=== PATIENT | female | born 1960 | race Caucasian/White ===

== ENCOUNTER 2018-09-08 15:43 | Emergency (ER) | payer OTHER ==
[2018-09-08 15:48] VITALS: RESP 18
[2018-09-08] MEDS ORDERED: HYDROmorphone 1 MG/ML 1 ML SYRINGE IVP STA ×2 (16:19→17:53)
[2018-09-08] MEDS ORDERED: ONDANSETRON 4 MG/2 ML VIAL IVP STA ×2 (16:19→17:53)
[2018-09-08] MEDS ORDERED: SODIUM CHLORIDE 0.9% 1,000 ML IV STA (16:19)
[2018-09-08 17:03] LABS: Basophils % (A) 0 %; Eosinophils % (A) 1 %; HGB 13.3 gm/dL (11.4-16.0); Lymphocytes # (A) 1.3 k/uL (1.0-4.8); Lymphocytes % (A) 16 %; MCH 32.8 pg (25.0-35.0); MCHC 32.5 g/dL (31.0-37.0); MCV 100.8 fL (80.0-100.0); Mean Platelet Volume 6.3; Monocytes # (A) 0.1 k/uL (0-1.0); Monocytes % (A) 1 %; Neutrophils # (A) 6.8 k/uL (1.3-7.7); Neutrophils % (A) 82 %; Platelet Count 415 k/uL (150-450); RBC 4.07 m/uL (3.80-5.40); RDW 11.9 % (11.5-15.5); WBC 8.3 k/uL (3.8-10.6)
[2018-09-08 17:08] LABS: Appearance,Urine Clear (Clear); Bilirubin,Urine Negative (Negative); Blood,Urine Negative (Negative); Color,Urine Yellow; Glucose,Urine (UA) Negative (Negative); Ketones,Urine Negative (Negative); Leukocyte Esterase,Urine Negative (Negative); Nitrite,Urine Negative (Negative); PH, Urine 5.5 (5.0-8.0); Protein,Urine Trace (Negative); Specific Gravity,Urine 1.026 (1.001-1.035); Urobilinogen,Urine <2.0 mg/dL (<2.0)
[2018-09-08 17:13] LABS: Albumin 4.2 g/dL (3.5-5.0); Calcium 10.1 mg/dL (8.4-10.2); Potassium 3.9 mmol/L (3.5-5.1); Total Bilirubin 0.6 mg/dL (0.2-1.3); Total Protein 7.9 g/dL (6.3-8.2)
--- NOTE | 2018-09-08 17:53 | ED ---
General Adult HPI - General Chief complaint: Abdominal Pain Stated complaint: Abd pain Time Seen by Provider: 09/08/18 16:01 Source: patient, RN notes reviewed, old records reviewed Mode of arrival: wheelchair Limitations: no limitations - History of Present Illness Initial comments: Patient is a 57-year-old female's with significant past medical history for pericarditis, presented to the emergency room today with a chief complaint of increased abdominal pain. She states it feels like pancreatitis that she's had in the past. She does admit that she was at [facility] a few weeks ago admitted and then released after a few days. She states that she has not followed up with GI. Patient does admit the pain seemed to increase the last 2 days. She states she's had increased nausea vomiting over the last day. No signs of blood. Does admit to diarrhea as well. Patient denies any other complaints or symptoms. She states that the symptoms are consistent with finger times that she's had before. She states pain is located in the upper abdomen and radiates to the sides. Patient denies any recent fever, chills, shortness of breath, chest pain, back pain, numbness or tingling, headaches or visual changes, or any other complaints. - Related Data Home Medications Medication Instructions Recorded Confirmed Albuterol Inhaler [Ventolin Hfa 4 puff INHALATION RT-DAILY PRN 07/27/14 09/08/18 Inhaler] Escitalopram [Lexapro] 20 mg PO DAILY 07/27/14 09/08/18 Montelukast [Singulair] 10 mg PO HS 07/27/14 09/08/18 Ibuprofen [Motrin] 800 mg PO Q6HR PRN 09/09/16 09/08/18 ALPRAZolam [Xanax] 1 mg PO TID 09/08/18 09/08/18 Albuterol Nebulized [Ventolin 2.5 mg INHALATION DAILY PRN 09/08/18 09/08/18 Nebulized] Cyclobenzaprine [Flexeril] 5 mg PO BID 09/08/18 09/08/18 Folic Acid 1 mg PO DAILY 09/08/18 09/08/18 HYDROcodone/APAP 10-325MG [[place] 1 tab PO TID 09/08/18 09/08/18 10-325] Levothyroxine Sodium 125 mcg PO DAILY 09/08/18 09/08/18 Lipase/Protease/Amylase [[place] 36,000 - 108,000 units PO DAILY 09/08/1809/08 36,000 Units Capsule] Omeprazole 20 mg PO BID 09/08/18 09/08/18 Thiamine [Vitamin B-1] 100 mg PO DAILY 09/08/18 09/08/18 Previous Rx's Medication Instructions Recorded Ondansetron Odt [Zofran ODT] 4 mg PO Q8HR PRN #20 tab 09/08/18 Allergies Allergy/AdvReac Type Severity Reaction Status Date / Time adhesive tape Allergy Rash/Hives Verified 09/08/18 16:18 chocolate flavor AdvReac Nausea & Verified 09/08/18 16:18 Vomiting morphine AdvReac Vomiting Verified 09/08/18 16:18 tomato AdvReac Nausea & Verified 09/08/18 16:18 Vomiting Review of Systems ROS Statement: Those systems with pertinent positive or pertinent negative responses have been documented in the HPI. ROS Other: All systems not noted in ROS Statement are negative. Past Medical History Past Medical History: Asthma, COPD, GERD/Reflux, Pneumonia, Skin Disorder, Thyroid Disorder Additional Past Medical History / Comment(s): Chronic pancreatitis, back pain- BULGING DISCS, scoliosis, COLITIS, UTI'S, ANEMIA, several stomach ULCERs, MIGRAINES, TMJ, bilateral TINNITIS, "spider" veins on bilateral legs, CYST ON LIVER-stable, hemorhoids, fx tailbone, eczema. History of Any Multi-Drug Resistant Organisms: None Reported Past Surgical History: Appendectomy, Tonsillectomy Additional Past Surgical History / Comment(s): sinus SX FOR DEVIATED SEPTUM, laproscopy for ovarian cysts, novasure UTERINE ABLATION, CYSTOSCOPY, TOOTH EXTRACTIONS, EGD W/STOMACH BX,COLONOSCOPIES, stents in pancreas Past Anesthesia/Blood Transfusion Reactions: Previous Problems w/ Anesthesia Additional Past Anesthesia/Blood Transfusion Reaction / Comment(s): trouble breathing coming out of anesthesia Past Psychological History: Anxiety Smoking Status: Current every day smoker Past Alcohol Use History: Occasional Past Drug Use History: None Reported - Past Family History Mother Family Medical History: Myocardial Infarction (ME) Additional Family Medical History / Comment(s): Mother of a ME at age 44yrs. Father History Unknown: Yes General Exam - General Exam Comments Initial Comments: General: The patient is awake and alert, in no distress, and does not appear acutely ill. Eye: There is normal conjunctiva bilaterally. No signs of icterus. Ears, nose, mouth and throat: There are moist mucous membranes and no oral lesions. Neck: The neck is supple, there is no tenderness or JVD. Cardiovascular: There is a regular rate and rhythm. No murmur, rub or gallop is appreciated. Respiratory: Lungs are clear to auscultation, respirations are non-labored, breath sounds are equal. No wheezes, stridor, rales, or rhonchi. Gastrointestinal: Abdomen soft on palpation. Patient does have tenderness epigastric and both left and right upper quadrants. No rebound, guarding or CVA tenderness. Musculoskeletal: Normal ROM, no tenderness. Strength 5/5. Sensation intact. Radial Pulses equal bilaterally 2+. Neurological: A&O x 3. CN II-XII intact, There are no obvious motor or sensory deficits. Coordination appears grossly intact. Speech is normal. Skin: Skin is warm and dry and no rashes or lesions are noted. Psychiatric: Cooperative, appropriate mood & affect, normal judgment. Limitations: no limitations Course Vital Signs 09/08/18 09/08/18 15:44 16:53 Temperature 97.5 F L Pulse Rate 102 H 87 Respiratory 18 18 Rate Blood Pressure 110/75 O2 Sat by Pulse 100 98 Oximetry Medical Decision Making - Medical Decision Making Patient's labs been reviewed does show lipase mildly elevated at 468. Patient is doing well at this time has had no nausea vomiting here. Abdomen is soft on palpation. Patient states that the symptoms are consistent with pink at times that she's had in the past. She states that she feels comfortable being discharged home. Will be given nausea medication. Advised to follow-up with GI. Advised to return if symptoms increase or worsen. She states understanding and is in agreement. - Lab Data Result diagrams: 09/08/18 16:40 09/08/18 16:40 Lab Results 09/08/18 09/08/18 09/08/18 Range/Units 16:40 16:40 16:40 WBC 8.3 (3.8-10.6) k/uL RBC 4.07 (3.80-5.40) m/uL Hgb 13.3 (11.4-16.0) gm/dL Hct 41.0 (34.0-46.0) % MCV 100.8 H (80.0-100.0) fL MCH 32.8 (25.0-35.0) pg MCHC 32.5 (31.0-37.0) g/dL RDW 11.9 (11.5-15.5) % Plt Count 415 (150-450) k/uL Neutrophils % 82 % Lymphocytes % 16 % Monocytes % 1 % Eosinophils % 1 % Basophils % 0 % Neutrophils # 6.8 (1.3-7.7) k/uL Lymphocytes # 1.3 (1.0-4.8) k/uL Monocytes # 0.1 (0-1.0) k/uL Eosinophils # 0.0 (0-0.7) k/uL Basophils # 0.0 (0-0.2) k/uL Sodium 136 L (137-145) mmol/L Potassium 3.9 (3.5-5.1) mmol/L Chloride 101 (98-107) mmol/L Carbon Dioxide 23 (22-30) mmol/L Anion Gap 12 mmol/L BUN 16 (7-17) mg/dL Creatinine 1.04 (0.52-1.04) mg/dL Est GFR (CKD-EPI)AfAm 70 (>60 ml/min/1.73 sqM) Est GFR (CKD-EPI)NonAf 61 (>60 ml/min/1.73 sqM) Glucose 123 H (74-99) mg/dL Calcium 10.1 (8.4-10.2) mg/dL Total Bilirubin 0.6 (0.2-1.3) mg/dL AST 24 (14-36) U/L ALT 19 (9-52) U/L Alkaline Phosphatase 123 (38-126) U/L Total Protein 7.9 (6.3-8.2) g/dL Albumin 4.2 (3.5-5.0) g/dL Amylase 112 H (30-110) U/L Lipase 468 H (23-300) U/L Urine Color Yellow Urine Appearance Clear (Clear) Urine pH 5.5 (5.0-8.0) Ur Specific [place] 1.026 (1.001-1.035) Urine Protein Trace H (Negative) Urine Glucose (UA) Negative (Negative) Urine Ketones Negative (Negative) Urine Blood Negative (Negative) Urine Nitrite Negative (Negative) Urine Bilirubin Negative (Negative) Urine Urobilinogen <2.0 (<2.0) mg/dL Ur Leukocyte Esterase Negative (Negative) Disposition Clinical Impression: Pancreatitis Disposition: HOME SELF-CARE Condition: Good Instructions: Pancreatitis (ED) Additional Instructions: Please use medication as discussed. Please follow-up with GI/family doctor in the next 2 days of symptoms have not improved. Please return to emergency room if the symptoms increase or worsen or for any other concerns. Prescriptions: Ondansetron Odt [Zofran ODT] 4 mg PO Q8HR PRN #20 tab PRN Reason: Nausea Is patient prescribed a controlled substance at d/c from ED?: No Referrals: Miquel Randolph MD [Primary Care Provider] - 1-2 days Tea Moore MD [STAFF PHYSICIAN] - 1-2 days Time of Disposition: 17:52
[2018-09-08 18:08] VITALS: BP 114/72; PULSE 93
[2018-09-08 18:15] VITALS: TEMP 98.7
== END 2018-09-08 18:15 | disposition home or self-care (01) ==
LOC: EC 15:43
DX: K85.90 Acute pancreatitis without necrosis or infection, unspecified (principal); R74.8 Abnormal levels of other serum enzymes; J44.9 Chronic obstructive pulmonary disease, unspecified; K21.9 Gastro-esophageal reflux disease without esophagitis; E07.9 Disorder of thyroid, unspecified; D64.9 Anemia, unspecified; F41.9 Anxiety disorder, unspecified; F17.200 Nicotine dependence, unspecified, uncomplicated; Z79.891 Long term (current) use of opiate analgesic; Z79.899 Other long term (current) drug therapy; Z88.5 Allergy status to narcotic agent; Z91.018 Allergy to other foods; Z91.048 Other nonmedicinal substance allergy status; Z90.49 Acquired absence of other specified parts of digestive tract
CPT/HCPCS: 99284 ×2; 96374 ×2; 96375 ×2; 96376 ×3; 96361 ×2; 36415; 80053; 82150; 83690; 85025; 81003; J2405; J1170

== ENCOUNTER 2018-09-13 16:02 | Emergency (ER) | payer OTHER ==
[2018-09-13] MEDS ORDERED: ONDANSETRON 4 MG/2 ML VIAL IVP STA (16:18)
[2018-09-13] MEDS ORDERED: SODIUM CHLORIDE 0.9% 1,000 ML IV STA ×2 (16:18)
[2018-09-13] MEDS ORDERED: HYDROmorphone 1 MG/ML 1 ML SYRINGE IVP STA ×2 (16:19→19:53)
--- NOTE | 2018-09-13 16:39 | ED ---
General Adult HPI - General Chief complaint: Abdominal Pain Stated complaint: pancreatitis Time Seen by Provider: 09/13/18 16:13 Source: patient, RN notes reviewed Mode of arrival: wheelchair Limitations: no limitations - History of Present Illness Initial comments: Patient's a 27-year-old female significant past medical history for pancreatic tenderness, presented to the emergency room today with a chief complaint of increased abdominal pain. Patient does admit that she followed up with her surgeon today was advised coming here to the emergency room. Patient states she 's been having increased pain over the last 2-3 weeks. Patient does admit that she was admitted at [facility] approximately one week ago and then released. She states that she's had increased pain over the last 4 days. Patient does admit to nausea vomiting. Patient denies any recent fever, chills, shortness of breath, chest pain, back pain, numbness or tingling, headaches or visual changes, or any other complaints. - Related Data Home Medications Medication Instructions Recorded Confirmed Albuterol Inhaler [Ventolin Hfa 2 puff INHALATION RT-Q4H PRN 07/27/14 09/13/18 Inhaler] Escitalopram [Lexapro] 20 mg PO DAILY 07/27/14 09/13/18 Montelukast [Singulair] 10 mg PO HS 07/27/14 09/13/18 ALPRAZolam [Xanax] 1 mg PO TID 09/08/18 09/13/18 Folic Acid 1 mg PO DAILY 09/08/18 09/13/18 Lipase/Protease/Amylase [[place] [address] 6 cap PO TID 09/08/18 09/13/18 36,000 Units Capsule] Omeprazole 20 mg PO BID 09/08/18 09/13/18 HYDROcodone/APAP 7.5-325MG [[place] 1 tab PO BID PRN 09/13/18 09/13/18 7.5-325] diphenhydrAMINE [Benadryl] 25 mg PO Q8H PRN 09/13/18 09/13/18 Allergies Allergy/AdvReac Type Severity Reaction Status Date / Time adhesive tape Allergy Rash/Hives Verified 09/13/18 16:52 chocolate flavor AdvReac Nausea & Verified 09/13/18 16:52 Vomiting morphine AdvReac Vomiting Verified 09/13/18 16:52 tomato AdvReac Nausea & Verified 09/13/18 16:52 Vomiting Review of Systems ROS Statement: Those systems with pertinent positive or pertinent negative responses have been documented in the HPI. ROS Other: All systems not noted in ROS Statement are negative. Past Medical History Past Medical History: Asthma, COPD, GERD/Reflux, Pneumonia, Skin Disorder, Thyroid Disorder Additional Past Medical History / Comment(s): Chronic pancreatitis, back pain- BULGING DISCS, scoliosis, COLITIS, UTI'S, ANEMIA, several stomach ULCERs, MIGRAINES, TMJ, bilateral TINNITIS, "spider" veins on bilateral legs, CYST ON LIVER-stable, hemorhoids, fx tailbone, eczema. History of Any Multi-Drug Resistant Organisms: None Reported Past Surgical History: Appendectomy, Tonsillectomy Additional Past Surgical History / Comment(s): sinus SX FOR DEVIATED SEPTUM, laproscopy for ovarian cysts, novasure UTERINE ABLATION, CYSTOSCOPY, TOOTH EXTRACTIONS, EGD W/STOMACH BX,COLONOSCOPIES, stents in pancreas Past Anesthesia/Blood Transfusion Reactions: Previous Problems w/ Anesthesia Additional Past Anesthesia/Blood Transfusion Reaction / Comment(s): trouble breathing coming out of anesthesia Past Psychological History: Anxiety Smoking Status: Current every day smoker Past Alcohol Use History: Occasional Past Drug Use History: None Reported - Past Family History Mother Family Medical History: Myocardial Infarction (NH) Additional Family Medical History / Comment(s): Mother of a NH at age 44yrs. Father History Unknown: Yes General Exam - General Exam Comments Initial Comments: General: The patient is awake and alert, in mild distress Eye: There is normal conjunctiva bilaterally. No signs of icterus. Ears, nose, mouth and throat: There are moist mucous membranes and no oral lesions. Neck: The neck is supple. Cardiovascular: There is a regular rate and rhythm. No murmur, rub or gallop is appreciated. Respiratory: Lungs are clear to auscultation, respirations are non-labored, breath sounds are equal. No wheezes, stridor, rales, or rhonchi. Gastrointestinal: Patient does have tenderness epigastric and both left and right upper quadrants. No rebound. Musculoskeletal: Normal ROM, no tenderness. Strength 5/5. Sensation intact. Pulses equal bilaterally 2+. Neurological: A&O x 3. CN II-XII intact, There are no obvious motor or sensory deficits. Coordination appears grossly intact. Speech is normal. Skin: Skin is warm and dry and no rashes or lesions are noted. Psychiatric: Cooperative, appropriate mood & affect, normal judgment. Limitations: no limitations Course Vital Signs 09/13/18 09/13/18 09/13/18 16:06 17:18 17:54 Temperature 98.1 F 100.8 F H Pulse Rate 127 H 121 H Respiratory 18 24 Rate Blood Pressure 136/97 122/76 O2 Sat by Pulse 97 97 Oximetry 09/13/18 18:16 Temperature Pulse Rate 102 H Respiratory 18 Rate Blood Pressure 113/67 O2 Sat by Pulse 98 Oximetry EKG Findings - EKG Comments: EKG Findings:: EKG performed at 1751: Shows sinus tachycardia 115 bpm. [place] 138. QRS 90. QT/QTC 334/462. No acute STchanges. Medical Decision Making - Medical Decision Making 1954: Patient's CAT scan reviewed. CT of the chest. CT the abdomen and pelvis does show evidence for chronic pancreatitis but there is a new acute cholecystitis. Patient has no elevated white count. There is elevation of alk phos. Patient did have fever started here in the emergency room. Blood cultures and lactic acid currently pending at this time. Patient will be started on Zosyn to cover for sepsis which is diagnosed at this time. Case discussed and seen by attending physician Dr. Ruby. Who did discuss with patient's surgeon Dr. Lamb about findings. States that he believes that findings related to pseudocyst and recommends transfer to [facility] where patient has been seen in the past and had a size painter extent placed. 2024: Case was discussed in detail with [facility] Dr. Rosario who will accept the patient with an ER to ER transfer. - Lab Data Result diagrams: 09/13/18 16:47 09/13/18 16:47 Lab Results 09/13/18 09/13/18 09/13/18 Range/Units 16:41 16:41 16:47 WBC 9.7 (3.8-10.6) k/uL RBC 4.29 (3.80-5.40) m/uL Hgb 13.7 (11.4-16.0) gm/dL Hct 42.4 (34.0-46.0) % MCV 98.7 (80.0-100.0) fL MCH 32.0 (25.0-35.0) pg MCHC 32.4 (31.0-37.0) g/dL RDW 12.2 (11.5-15.5) % Plt Count 724 H (150-450) k/uL Neutrophils % 77 % Lymphocytes % 19 % Monocytes % 2 % Eosinophils % 1 % Basophils % 0 % Neutrophils # 7.5 (1.3-7.7) k/uL Lymphocytes # 1.8 (1.0-4.8) k/uL Monocytes # 0.2 (0-1.0) k/uL Eosinophils # 0.1 (0-0.7) k/uL Basophils # 0.0 (0-0.2) k/uL D-Dimer 2.04 H (<0.60) mg/L FEU Sodium (137-145) mmol/L Potassium (3.5-5.1) mmol/L Chloride (98-107) mmol/L Carbon Dioxide (22-30) mmol/L Anion Gap mmol/L BUN (7-17) mg/dL Creatinine (0.52-1.04) mg/dL Est GFR (CKD-EPI)AfAm (>60 ml/min/1.73 sqM) Est GFR (CKD-EPI)NonAf (>60 ml/min/1.73 sqM) Glucose (74-99) mg/dL Calcium (8.4-10.2) mg/dL Total Bilirubin (0.2-1.3) mg/dL AST (14-36) U/L ALT (9-52) U/L Alkaline Phosphatase (38-126) U/L Total Creatine Kinase <20 L (30-135) U/L CK-MB (CK-2) <0.2 (0.0-2.4) ng/mL CK-MB (CK-2) Rel Index Troponin I <0.012 (0.000-0.034) ng/mL Total Protein (6.3-8.2) g/dL Albumin (3.5-5.0) g/dL Amylase (30-110) U/L Lipase (23-300) U/L 09/13/18 Range/Units 16:47 WBC (3.8-10.6) k/uL RBC (3.80-5.40) m/uL Hgb (11.4-16.0) gm/dL Hct (34.0-46.0) % MCV (80.0-100.0) fL MCH (25.0-35.0) pg MCHC (31.0-37.0) g/dL RDW (11.5-15.5) % Plt Count (150-450) k/uL Neutrophils % % Lymphocytes % % Monocytes % % Eosinophils % % Basophils % % Neutrophils # (1.3-7.7) k/uL Lymphocytes # (1.0-4.8) k/uL Monocytes # (0-1.0) k/uL Eosinophils # (0-0.7) k/uL Basophils # (0-0.2) k/uL D-Dimer (<0.60) mg/L FEU Sodium 140 (137-145) mmol/L Potassium 3.4 L (3.5-5.1) mmol/L Chloride 100 (98-107) mmol/L Carbon Dioxide 26 (22-30) mmol/L Anion Gap 14 mmol/L BUN 15 (7-17) mg/dL Creatinine 0.73 (0.52-1.04) mg/dL Est GFR (CKD-EPI)AfAm >90 (>60 ml/min/1.73 sqM) Est GFR (CKD-EPI)NonAf >90 (>60 ml/min/1.73 sqM) Glucose 120 H (74-99) mg/dL Calcium 10.3 H (8.4-10.2) mg/dL Total Bilirubin 0.4 (0.2-1.3) mg/dL AST 18 (14-36) U/L ALT 12 (9-52) U/L Alkaline Phosphatase 189 H (38-126) U/L Total Creatine Kinase (30-135) U/L CK-MB (CK-2) (0.0-2.4) ng/mL CK-MB (CK-2) Rel Index Troponin I (0.000-0.034) ng/mL Total Protein 8.2 (6.3-8.2) g/dL Albumin 4.1 (3.5-5.0) g/dL Amylase 119 H (30-110) U/L Lipase 382 H (23-300) U/L - Radiology Data CTA of the chest shows pulmonary emphysema. No evidence of pulmonary embolism. Bilateral upper lobe pulmonary scarring. There is clearing of pleural effusion and pulmonary infiltrates compared to an old exam. There is evidence for pancreatic pseudocyst. CT abdomen and pelvis shows changes in the pancreas consistent with chronic pancreatitis with pseudocyst and mildly dilated pancreatic duct. Pancreatic calcification. Pseudocyst measuring 32.5 cm and is significantly smaller than old CT on 10/03/2016. There is decrease in smaller cyst in the pancreas compared to old exam. There is a dilated gallbladder suggestive of acute cholecystitis. Disposition Clinical Impression: Pancreatitis, Cholecystitis Disposition: OTHER INSTITUTION NOT DEFINED Condition: Stable Is patient prescribed a controlled substance at d/c from ED?: No Referrals: Miquel Randolph MD [Primary Care Provider] - 1-2 days Time of Disposition: 20:11 - Out of Hospital Transfer - Req. Specs Out of Hospital Transfer - Requested Specifics: Other Emergency Center ([facility])
[2018-09-13 16:54] LABS: Basophils % (A) 0 %; Eosinophils # (A) 0.1 k/uL (0-0.7); Eosinophils % (A) 1 %; HCT 42.4 % (34.0-46.0); HGB 13.7 gm/dL (11.4-16.0); Lymphocytes # (A) 1.8 k/uL (1.0-4.8); Lymphocytes % (A) 19 %; MCHC 32.4 g/dL (31.0-37.0); MCV 98.7 fL (80.0-100.0); Mean Platelet Volume 6.4; Monocytes # (A) 0.2 k/uL (0-1.0); Monocytes % (A) 2 %; Neutrophils # (A) 7.5 k/uL (1.3-7.7); Neutrophils % (A) 77 %; Platelet Count 724 k/uL (150-450); RBC 4.29 m/uL (3.80-5.40); RDW 12.2 % (11.5-15.5); WBC 9.7 k/uL (3.8-10.6)
[2018-09-13 17:03] LABS: ALT 12 U/L (9-52); AST 18 U/L (14-36); Albumin 4.1 g/dL (3.5-5.0); Alkaline Phosphatase 189 U/L (38-126); Amylase 119 U/L (30-110); Anion Gap 14 mmol/L; Blood Urea Nitrogen 15 mg/dL (7-17); Calcium 10.3 mg/dL (8.4-10.2); Carbon Dioxide 26 mmol/L (22-30); Chloride 100 mmol/L (98-107); Glucose 120 mg/dL (74-99); Lipase 382 U/L (23-300); Potassium 3.4 mmol/L (3.5-5.1); Sodium 140 mmol/L (137-145); Total Bilirubin 0.4 mg/dL (0.2-1.3); Total Protein 8.2 g/dL (6.3-8.2)
[2018-09-13] MEDS ORDERED: ACETAMINOPHEN IV (For NPO) 1,000 MG in EMPTY BAG 1 BAG IVPB STA (18:00)
[2018-09-13 18:19] LABS: Creatine Kinase <20 U/L (30-135)
[2018-09-13 18:32] LABS: Creatine Kinase MB <0.2 ng/mL (0.0-2.4); Troponin I <0.012 ng/mL (0.000-0.034)
--- NOTE | 2018-09-13 19:37 | CT ---
EXAMINATION TYPE: CT abdomen pelvis w con DATE OF EXAM: 09/13/2018 COMPARISON: 10/03/2016 HISTORY: Elevated d-dimer, abdominal pain CT DLP: 319.5 mGycm Automated exposure control for dose reduction was used. TECHNIQUE: Helical acquisition of images was performed from the lung bases through the pelvis. CONTRAST: Performed without Oral Contrast and with IV Contrast, patient injected with 100 mL of Isovue 370. FINDINGS: Lung bases are clear. There is no pleural effusion. Heart size is normal. Liver shows no focal defect. Gallbladder is dilated and measures 4.7 cm. Spleen appears normal. There are some cystic changes at the tail of the pancreas. There is small pancreatic calcification.. There is mild ectasia of the pancreatic duct. There is no adrenal mass. Kidneys show satisfactory contrast opacification. There is no hydronephrosi s. There is no retroperitoneal adenopathy. Bladder distends smoothly. There is no inguinal hernia. Th ere is no free fluid in the pelvis. I see no intestinal wall thickening. There is no evidence of mese nteric edema or adenopathy. There is no sign of a thickened appendix. IMPRESSION: CHANGES IN THE PANCREAS CONSISTENT WITH CHRONIC PANCREATITIS WITH PSEUDOCYST AND MILDLY DILATED PANCR EATIC DUCT. PANCREATIC CALCIFICATION. PSEUDOCYST MEASURES 3 X 2.5 CM AND IS SIGNIFICANTLY SMALLER GUILLERMINA N OLD CT SCAN OF 10/03/2016. THERE IS DECREASE IN SMALLER CYSTS IN THE PANCREAS COMPARED TO OLD EXAM. T HERE IS A DILATED GALLBLADDER SUGGESTIVE OF ACUTE CHOLECYSTITIS THAT IS A CHANGE COMPARED TO OLD EXAM .
--- NOTE | 2018-09-13 19:46 | CT ---
EXAMINATION TYPE: CT angio chest DATE OF EXAM: 09/13/2018 7:26 PM COMPARISON: 09/22/2016 HISTORY: Elevated d-dimer, abdominal pain CT DLP: 152.4 mGycm Automated exposure control for dose reduction was used. CONTRAST: CTA scan of the thorax is performed with IV Contrast, patient injected with 100 mL of Isovue 370, pul monary embolism protocol. There are 3-D post processed images.. FINDINGS: The lungs are clear of consolidation. There is mild pulmonary emphysema. There is some reticular dens ity in the upper lobes and consistent with pleural and pulmonary scarring. There is no mediastinal ad enopathy. There are no hilar masses. Thoracic aorta shows no aneurysm or dissection. There is normal contrast opacification of the pulmonary arteries. There are no filling defects. There is no pleural effusion. There is no pericardial effusion. Heart size is normal. The bony thorax is i ntact. There is apparent pseudocyst in the body of the pancreas that is not completely evaluated. Thi s measures 3 cm and probably not change compared to old CT scan. IMPRESSION: PULMONARY EMPHYSEMA. NO EVIDENCE OF PULMONARY EMBOLISM. BILATERAL UPPER LOBE PULMONARY SCARRING. THER E IS CLEARING OF THE PLEURAL EFFUSIONS AND PULMONARY INFILTRATES COMPARED TO OLD EXAM. Pancreatic pse udocyst probably unchanged.
[2018-09-13] MEDS ORDERED: PIPERACILLIN-TAZOBACTAM 3.375 GM in SODIUM CHLORIDE 0.9% 100 ML IVPB STA (19:53)
[2018-09-13 20:49] LABS: Appearance,Urine Clear (Clear); Bacteria,Urine Rare /hpf; Bilirubin,Urine Negative (Negative); Blood,Urine Negative (Negative); Color,Urine Yellow; Glucose,Urine (UA) Negative (Negative); Hyaline Casts,Urine 27 /lpf (0-2); Ketones,Urine 1+ (Negative); Leukocyte Esterase,Urine Negative (Negative); Mucus,Urine Rare /hpf; Nitrite,Urine Negative (Negative); Protein,Urine 1+ (Negative); RBC,Urine 1 /hpf (0-5); Specific Gravity,Urine 1.027 (1.001-1.035); Squamous Epithelial Cell,Urine 1 /hpf (0-4); WBC,Urine 4 /hpf (0-5)
[2018-09-13 21:00] VITALS: RESP 22
[2018-09-13 21:02] VITALS: BP 113/66; PULSE 116; TEMP 101.6
[2018-09-14] MEDS ORDERED: PIPERACILLIN-TAZOBACTAM 3.375 GM in SODIUM CHLORIDE 0.9% 100 ML IVPB SCH ×2
== END 2018-09-13 21:00 | disposition short-term general hospital (02) ==
LOC: EC 16:02
DX: K85.90 Acute pancreatitis without necrosis or infection, unspecified (principal); K81.9 Cholecystitis, unspecified; F41.9 Anxiety disorder, unspecified; K21.9 Gastro-esophageal reflux disease without esophagitis; J44.9 Chronic obstructive pulmonary disease, unspecified; F17.200 Nicotine dependence, unspecified, uncomplicated; Z79.899 Other long term (current) drug therapy; Z91.048 Other nonmedicinal substance allergy status; Z88.5 Allergy status to narcotic agent; Z91.018 Allergy to other foods
CPT/HCPCS: 36415; 93005; 85379; 80053; 82150; 82550; 82553; 83605; 83690; 84484; 85025; 81001; 81025; 87040; 71275; 74177; 99285; 96365; 96375 ×2; 96376; J2543; J2405; J1170; J0131; Q9967

== ENCOUNTER 2018-10-11 16:58 | Emergency (ER) | payer OTHER ==
[2018-10-11 17:13] VITALS: TEMP 98.7
[2018-10-11] MEDS ORDERED: HYDROmorphone 1 MG/ML 1 ML SYRINGE IVP STA ×2 (17:43→19:56)
[2018-10-11] MEDS ORDERED: ONDANSETRON 4 MG/2 ML VIAL IVP STA (17:43)
[2018-10-11] MEDS ORDERED: SODIUM CHLORIDE 0.9% 1,000 ML IV STA (17:43)
[2018-10-11] MEDS ORDERED: SODIUM CHLORIDE 0.9% 500 ML 500 ML IV STA (17:43)
--- NOTE | 2018-10-11 17:49 | ED ---
General Adult HPI - General Chief complaint: Nausea/Vomiting/Diarrhea Stated complaint: Abd Pain Time Seen by Provider: 10/11/18 17:15 Source: patient Mode of arrival: wheelchair Limitations: no limitations - History of Present Illness Initial comments: 57-year-old female patient with past medical history significant for chronic pancreatitis presents to the emergency department today for evaluation of upper and states that she was admit to [facility], was told she had cysts in her pancreas there is some duct blockage. Patient believes her finger to his was initially cause of alcohol use. States that she has lost 23 pounds since [place] related to this. States that when her pain increases she attempts to stop eating and drinking, this time it did not resolve on its own. Patient has been taking [place] and Dilaudid for pain control at home. States it has not been relieving her pain. States that she has no appetite has been very nauseated. She denies any fevers or chills with this. She does have history of appendectomy and insertion and removal of feeding tube. Patient denies any recent rash, shortness breath, chest pain, back pain, numbness, tingling, dizziness, weakness, hematuria, dysuria, urinary urgency, urinary frequency, headache, visual changes, or any other complaints. - Related Data Home Medications Medication Instructions Recorded Confirmed Albuterol Inhaler [Ventolin Hfa 2 puff INHALATION RT-Q4H PRN 07/27/14 10/11/18 Inhaler] Escitalopram [Lexapro] 20 mg PO DAILY 07/27/14 10/11/18 Montelukast [Singulair] 10 mg PO HS 07/27/14 10/11/18 ALPRAZolam [Xanax] 1 mg PO TID 09/08/18 10/11/18 Folic Acid 1 mg PO DAILY 09/08/18 10/11/18 Lipase/Protease/Amylase [Creon Dr 6 cap PO TID 09/08/18 10/11/18 36,000 Units Capsule] Omeprazole 20 mg PO BID 09/08/18 10/11/18 HYDROcodone/APAP 7.5-325MG [[place] 1 tab PO TID PRN 09/13/18 10/11/18 7.5-325] diphenhydrAMINE [Benadryl] 25 mg PO Q8H PRN 09/13/18 10/11/18 Allergies Allergy/AdvReac Type Severity Reaction Status Date / Time adhesive tape Allergy Rash/Hives Verified 10/11/18 17:29 chocolate flavor AdvReac Nausea & Verified 10/11/18 17:29 Vomiting morphine AdvReac Vomiting Verified 10/11/18 17:29 tomato AdvReac Nausea & Verified 10/11/18 17:29 Vomiting Review of Systems ROS Statement: Those systems with pertinent positive or pertinent negative responses have been documented in the HPI. ROS Other: All systems not noted in ROS Statement are negative. Past Medical History Past Medical History: Asthma, COPD, GERD/Reflux, Pneumonia, Skin Disorder, Thyroid Disorder Additional Past Medical History / Comment(s): Chronic pancreatitis, back pain- BULGING DISCS, scoliosis, COLITIS, UTI'S, ANEMIA, several stomach ULCERs, MIGRAINES, TMJ, bilateral TINNITIS, "spider" veins on bilateral legs, CYST ON LIVER-stable, hemorhoids, fx tailbone, eczema. History of Any Multi-Drug Resistant Organisms: None Reported Past Surgical History: Appendectomy, Tonsillectomy Additional Past Surgical History / Comment(s): sinus SX FOR DEVIATED SEPTUM, laproscopy for ovarian cysts, novasure UTERINE ABLATION, CYSTOSCOPY, TOOTH EXTRACTIONS, EGD W/STOMACH BX,COLONOSCOPIES, stents in pancreas Past Anesthesia/Blood Transfusion Reactions: Previous Problems w/ Anesthesia Additional Past Anesthesia/Blood Transfusion Reaction / Comment(s): trouble breathing coming out of anesthesia Past Psychological History: Anxiety Smoking Status: Current every day smoker Past Alcohol Use History: Occasional Past Drug Use History: None Reported - Past Family History Mother Family Medical History: Myocardial Infarction (PA) Additional Family Medical History / Comment(s): Mother of a PA at age 44yrs. Father History Unknown: Yes General Exam Limitations: no limitations General appearance: alert, in no apparent distress, other (This is a well- developed, well-nourished adult female patient in no acute distress. Vital signs upon presentation are temperature 98.7F, pulse 118, respirations 18, blood pressure 107/73, pulse ox 99% on room air.) Eye exam: Present: normal appearance, PERRL, EOMI. Absent: scleral icterus, conjunctival injection, periorbital swelling ENT exam: Present: normal exam, normal oropharynx, mucous membranes moist Respiratory exam: Present: normal lung sounds bilaterally. Absent: respiratory distress, wheezes, rales, rhonchi, stridor Cardiovascular Exam: Present: regular rate, normal rhythm, normal heart sounds. Absent: systolic murmur, diastolic murmur, rubs, gallop, clicks GI/Abdominal exam: Present: soft, tenderness (Generalized abdominal tenderness) , normal bowel sounds. Absent: distended, guarding, rebound, rigid Neurological exam: Present: alert, oriented X3, CN II-XII intact Psychiatric exam: Present: normal affect, normal mood Skin exam: Present: warm, dry, intact, normal color. Absent: rash Course Vital Signs 10/11/18 10/11/18 17:10 20:14 Temperature 98.7 F Pulse Rate 118 H 88 Respiratory 18 16 Rate Blood Pressure 107/73 104/75 O2 Sat by Pulse 99 99 Oximetry Medical Decision Making - Medical Decision Making 57-year-old female patient presents to the emergency department today for evaluation of upper abdominal pain. She also reporting some nausea and vomiting. Physical examination did reveal generalized abdominal tenderness. Labs reviewed and were unremarkable. Patient has no chronic abdominal pain and pancreatitis. Vital signs are stable. She does report improvement of her pain with pain medication administration. She'll be discharged at this time to follow-up with her specialist for recheck as soon as possible. Return parameters were discussed in detail. She verbalizes understanding and agrees with this plan - Lab Data Result diagrams: 10/11/18 18:22 10/11/18 18:22 Lab Results 10/11/18 10/11/18 10/11/18 Range/Units 18:22 18:22 18:22 WBC 11.9 H (3.8-10.6) k/uL RBC 3.65 L (3.80-5.40) m/uL Hgb 11.3 L (11.4-16.0) gm/dL Hct 35.7 (34.0-46.0) % MCV 98.0 (80.0-100.0) fL MCH 31.0 (25.0-35.0) pg MCHC 31.6 (31.0-37.0) g/dL RDW 13.0 (11.5-15.5) % Plt Count 528 H (150-450) k/uL Neutrophils % 69 % Lymphocytes % 24 % Monocytes % 3 % Eosinophils % 1 % Basophils % 0 % Neutrophils # 8.2 H (1.3-7.7) k/uL Lymphocytes # 2.9 (1.0-4.8) k/uL Monocytes # 0.4 (0-1.0) k/uL Eosinophils # 0.1 (0-0.7) k/uL Basophils # 0.0 (0-0.2) k/uL Sodium 141 (137-145) mmol/L Potassium 3.6 (3.5-5.1) mmol/L Chloride 106 (98-107) mmol/L Carbon Dioxide 26 (22-30) mmol/L Anion Gap 9 mmol/L BUN 13 (7-17) mg/dL Creatinine 0.52 (0.52-1.04) mg/dL Est GFR (CKD-EPI)AfAm >90 (>60 ml/min/1.73 sqM) Est GFR (CKD-EPI)NonAf >90 (>60 ml/min/1.73 sqM) Glucose 105 H (74-99) mg/dL Calcium 9.4 (8.4-10.2) mg/dL Total Bilirubin 0.3 (0.2-1.3) mg/dL AST 19 (14-36) U/L ALT 20 (9-52) U/L Alkaline Phosphatase 137 H (38-126) U/L Total Protein 7.1 (6.3-8.2) g/dL Albumin 3.6 (3.5-5.0) g/dL Amylase 56 (30-110) U/L Lipase 176 (23-300) U/L Urine Color Yellow Urine Appearance Clear (Clear) Urine pH 5.5 (5.0-8.0) Ur Specific [place] 1.022 (1.001-1.035) Urine Protein Trace H (Negative) Urine Glucose (UA) Negative (Negative) Urine Ketones Negative (Negative) Urine Blood Negative (Negative) Urine Nitrite Negative (Negative) Urine Bilirubin Negative (Negative) Urine Urobilinogen 2.0 (<2.0) mg/dL Ur Leukocyte Esterase Negative (Negative) - Radiology Data Radiology results: report reviewed, image reviewed KUB x-ray of the abdomen was obtained. Report was reviewed in its entirety. Impression by Dr. Bartholomew shows nonacute abdomen with no change Disposition Clinical Impression: Abdominal pain Disposition: HOME SELF-CARE Condition: Good Instructions: Abdominal Pain (ED) Additional Instructions: Follow up with your specialist at [facility]. Return to the emergency department immediately for any new, worsening, or concerning symptoms. Is patient prescribed a controlled substance at d/c from ED?: No Referrals: Miquel Randolph MD [Primary Care Provider] - 1-2 days Time of Disposition: 19:57
[2018-10-11 18:36] LABS: Appearance,Urine Clear (Clear); Basophils % (A) 0 %; Bilirubin,Urine Negative (Negative); Blood,Urine Negative (Negative); Color,Urine Yellow; Eosinophils # (A) 0.1 k/uL (0-0.7); Eosinophils % (A) 1 %; Glucose,Urine (UA) Negative (Negative); HCT 35.7 % (34.0-46.0); HGB 11.3 gm/dL (11.4-16.0); Ketones,Urine Negative (Negative); Leukocyte Esterase,Urine Negative (Negative); Lymphocytes # (A) 2.9 k/uL (1.0-4.8); Lymphocytes % (A) 24 %; MCHC 31.6 g/dL (31.0-37.0); Monocytes # (A) 0.4 k/uL (0-1.0); Monocytes % (A) 3 %; Neutrophils # (A) 8.2 k/uL (1.3-7.7); Neutrophils % (A) 69 %; Nitrite,Urine Negative (Negative); PH, Urine 5.5 (5.0-8.0); Platelet Count 528 k/uL (150-450); Protein,Urine Trace (Negative); RBC 3.65 m/uL (3.80-5.40); Specific Gravity,Urine 1.022 (1.001-1.035); WBC 11.9 k/uL (3.8-10.6)
[2018-10-11 18:47] LABS: ALT 20 U/L (9-52); AST 19 U/L (14-36); Albumin 3.6 g/dL (3.5-5.0); Alkaline Phosphatase 137 U/L (38-126); Amylase 56 U/L (30-110); Anion Gap 9 mmol/L; Blood Urea Nitrogen 13 mg/dL (7-17); Calcium 9.4 mg/dL (8.4-10.2); Carbon Dioxide 26 mmol/L (22-30); Chloride 106 mmol/L (98-107); Glucose 105 mg/dL (74-99); Lipase 176 U/L (23-300); Potassium 3.6 mmol/L (3.5-5.1); Sodium 141 mmol/L (137-145); Total Bilirubin 0.3 mg/dL (0.2-1.3); Total Protein 7.1 g/dL (6.3-8.2)
--- NOTE | 2018-10-11 19:16 | XR ---
EXAMINATION TYPE: XR KUB DATE OF EXAM: 10/11/2018 COMPARISON: 09/09/2016 HISTORY: Vomiting abdominal pain TECHNIQUE: Single view FINDINGS: There is no sign of intestinal obstruction or pneumoperitoneum. Fecal pattern is normal. Th ere are no pathologic calcifications over the kidneys. Lung bases are clear. There is apparent fusion anomaly of the L3 and L4 vertebral bodies. Sacroiliac joints are intact. There are phleboliths in th e pelvis. There is mild lumbar dextroscoliosis. IMPRESSION: Nonacute abdomen. No change.
[2018-10-11 20:17] VITALS: BP 104/75; PULSE 88; RESP 16
== END 2018-10-11 20:16 | disposition home or self-care (01) ==
LOC: EC 16:58
DX: R10.10 Upper abdominal pain, unspecified (principal); R11.2 Nausea with vomiting, unspecified; R63.4 Abnormal weight loss; K86.1 Other chronic pancreatitis; R63.0 Anorexia; J44.9 Chronic obstructive pulmonary disease, unspecified; K21.9 Gastro-esophageal reflux disease without esophagitis; F41.9 Anxiety disorder, unspecified; F17.200 Nicotine dependence, unspecified, uncomplicated; Z88.5 Allergy status to narcotic agent; Z91.018 Allergy to other foods; Z91.02 Food additives allergy status; Z91.048 Other nonmedicinal substance allergy status; Z79.899 Other long term (current) drug therapy; Z87.19 Personal history of other diseases of the digestive system; Z90.49 Acquired absence of other specified parts of digestive tract; Z87.01 Personal history of pneumonia (recurrent); Z72.89 Other problems related to lifestyle; Z96.89 Presence of other specified functional implants
CPT/HCPCS: 99284; 96374; 96375; 96376; 96361; 36415; 80053; 82150; 83690; 85025; 81003; 74018; J2405; J1170

== ENCOUNTER → 2018-11-21 | Outpatient (CLI) | payer OTHER ==
[2018-11-21 14:09] VITALS: BP 113/81; PULSE 101; RESP 16
== END ==
LOC: PNWHC3 13:35
PROVIDERS: ATTEND Specialist
DX: Z53.21 Procedure and treatment not carried out due to patient leaving prior to being seen by health care provider (principal)
CPT/HCPCS: 99211

== ENCOUNTER → 2019-09-06 | Outpatient (CLI) | payer OTHER ==
--- NOTE | 2019-09-06 17:07 | CT ---
EXAMINATION TYPE: CT lumbar spine wo con DATE OF EXAM: 09/06/2019 COMPARISON: None HISTORY: Low back pain after fall x2 months ago. CT DLP: 842 mGycm Automated exposure control for dose reduction was used. An unenhanced CT of the lumbar spine was performed. Bone and soft tissue window settings are submitt ed as well as coronal and sagittal reconstructions. FINDINGS: Lumbar vertebral bodies show preserved bone mineralization. Loss of height of superior endplate of L1 is noted, some associated sclerosis is present. There is a spinal curvature present. Lumbar vertebra l bodies are intact. 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 There is a biliary stent in place. Pancr eatic stent also noted. L1-L2: Normal disc space height. No disc herniation protrusion or central stenosis. No facet joint arthropathy. No evidence for foraminal encroachment. L2-L3: Normal disc space height. No disc herniation protrusion or central stenosis. No facet joint arthropathy. No evidence for foraminal encroachment. L3-L4: Normal disc space height. No disc herniation protrusion or central stenosis. No facet joint arthropathy. No evidence for foraminal encroachment. There is facet arthropathy change. L4-L5: Broad-based posterior disc bulge causes minimal anterior mass effect on the thecal sac. There is facet arthropathy change. No significant spinal stenosis. There is a segmentation anomaly suspecte d on the right at L4, fenestrated appearance of the neural foramen is present on the right. L5-S1: Posterior broad-based disc bulge causes anterior mass effect on the thecal sac. Mild spinal st enosis. Circumferential extension of endplate disc complex results in foraminal encroachment bilatera lly. 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 There is spinal curvature, degenerative disc disease as described. Superior endplate fracture of L1 is indeterminate age, bone scan or MRI may be of benefit. Facet arthropathy. No paraspinal masses are identified. Lumbar segments are intact.
== END | disposition home or self-care (01) ==
LOC: RADCTMAIN 15:37
PROVIDERS: ATTEND Psychiatry & Neurology Neurology
DX: M51.36 Other intervertebral disc degeneration, lumbar region (principal); M46.96 Unspecified inflammatory spondylopathy, lumbar region; M43.8X6 Other specified deforming dorsopathies, lumbar region
CPT/HCPCS: 72131